=== PATIENT | male | born 1930 | race Caucasian/White ===

== ENCOUNTER → 2017-07-15 | Outpatient (CLI) | payer MEDICARE, OTHER ==
[~2017-07-15] MED LIST: ACET-784 GT; AUD NEB; BENZ1LOZ68 PO; BISA10S PR; CARV3 PO; DSS100 PO; FE RC; HYDR-3965 GT; INSNOV SQ; INSU100V12 SQ; LORA1TAB3 PO; MIRT15 PO; MOM30 PO; MULT1TAB59 GT; PHOSLOC PO; SEVE800 GT
== END | disposition home or self-care (01) ==
LOC: RADMN 10:12
PROVIDERS: ATTEND Family Medicine
DX: K76.89 Other specified diseases of liver (principal); K80.20 Calculus of gallbladder without cholecystitis without obstruction; K57.30 Diverticulosis of large intestine without perforation or abscess without bleeding; J98.11 Atelectasis; I70.0 Atherosclerosis of aorta
CPT/HCPCS: 74176

== ENCOUNTER → 2017-08-03 | Outpatient (CLI) | payer MEDICARE, OTHER | END | disposition home or self-care (01) | LOC: RADPV 09:25 | PROVIDERS: ATTEND Family Medicine | DX: J98.6 Disorders of diaphragm (principal); I70.0 Atherosclerosis of aorta | CPT/HCPCS: 71020 ==

== ENCOUNTER → 2018-04-21 | Outpatient (CLI) | payer MEDICARE, OTHER | END | disposition home or self-care (01) | LOC: RADMN 13:09 | PROVIDERS: ATTEND Family Medicine | DX: I67.2 Cerebral atherosclerosis (principal); I67.82 Cerebral ischemia | CPT/HCPCS: 70450 ==